=== PATIENT | female | born 1975 | race Caucasian/White ===

== ENCOUNTER 2019-07-14 14:12 | Emergency (ER) | payer OTHER, SELFPAY ==
[2019-07-14 14:20] VITALS: BP 135/111; PULSE 105; RESP 20; TEMP 37.1; O2SAT 98
--- NOTE | 2019-07-14 14:32 | ED.GENADULT ---
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 Patient has red scattered circular, linear, irregular excoriated macular rash with areas of hives noted especially to abdomen, forearms, hands, and lower back. Patient states that she feels like her skin is crawling, denies any shortness of breath or any difficulty with her swallowing. Patient does work in a vet office but denies any exposure to anything there that could of caused rash.Patient states that she took some of her daughters unused steroids, she took 5 days of 60mg then has started to taper dose down, has taken Benadryl 50 mg regularly for the itching and has been taking Annamarie. Patient's blood pressure taken manually with recording of 142/90 obtained. MD complaint: rash Onset (ago): day(s) (9-10 days) Location: back, abdomen and upper extremity (bilateral arms and hands) Severity: moderate Quality: other (itching) Relieving factors: none Exacerbating factors: movement Associated symptoms: other (itching) Treatments prior to arrival: other (daughters unused steroids which she is tapering, benadryl orally, annamarie) Related Data Allergies Allergy/AdvReac Type Severity Reaction Status Date / Time latex Allergy Rash Verified 07/14/19 14:37 Review of Systems Review of Systems: Narrative: CONSTITUTIONAL: Denies fever, chills, or sweats. EYES: Denies visual changes, redness, or discharge. ENT: Denies rhinorrhea, congestion, sore throat, or otalgia. CARDIOVASCULAR: Denies chest pain, palpitations, or edema. RESPIRATORY: Denies cough or dyspnea. GASTROINTESTINAL: Denies abdominal pain, nausea, vomiting, or diarrhea. GENITOURINARY: Denies dysuria or hematuria. SKIN: Positive for scattered rash and itching to abdomen, back, arms and hands. MUSCULOSKELETAL: Denies back pain, joint pain, or myalgia. NEUROLOGIC: Denies headache, numbness, or weakness. PSYCHIATRIC: Denies anxiety or depression. All systems reviewed & are unremarkable except as noted in HPI and below PMFSH Past Medical History Medical History (Updated 07/16/19 @ 10:04 by Yvonne Childers NP) Foot fracture, left Fracture, nasal Social History Social History (Updated 07/16/19 @ 10:04 by Yvonne Childers NP) Smoking status: Never smoker Living arrangements: with family Gender identity (if verbalized by the patient): Female Comments At time of signature, agree with nursing past medical, social history. There is no relevant family history pertinent to the presenting complaint Exam Narrative: Exam Narrative: GENERAL: Well-appearing, well-nourished, and in no acute distress. HEAD: Normocephalic, atraumatic. EYES: PERRLA and EOMI. ENT: Nares clear, no rhinorrhea or epistaxis. Mucous membranes moist.TM's normal with good light reflex, throat pink with no swelling,tonsil enlargement or lesions NECK: Supple.no lymphadenopathy CHEST: Clear to auscultation. No respiratory distress.SAO2 98% on room air HEART: Regular rate and rhythm. No murmur heard. Normal peripheral pulses. ABDOMEN: Soft, nontender, nondistended, normal active bowel sounds. EXTREMITIES: Normal range of motion. No edema. SKIN: Warm, dry, red scattered excoriated macular rash with some hives noted also to abdomen and forearms mainly, with some areas to hands and lower back. Areas noted to be circular, linear,irregular in shape with no drainage noted but extreme itching voiced. NEURO: No focal deficits. Alert and oriented x3. Course Vital Signs Vital signs: Vital Signs Temperature 37.1 C 07/14/19 14:20 Pulse Rate 105 H 07/14/19 14:20 R
[2019-07-14] MEDS: methylPREDNISolone ACETATE 40 MG/ML VIAL 80 MG IM (15:03)
== END 2019-07-14 15:35 | disposition home or self-care (01) ==
PROVIDERS: Emergency Provider Registered Nurse
DX: L23.7 Allergic contact dermatitis due to plants, except food (principal)
CPT/HCPCS: 96372; 99204; G0463; J1030; J1200